=== PATIENT | female | born 1960 | race Caucasian/White ===

== ENCOUNTER → 2019-11-22 | Outpatient (CLI) | payer OTHER | LOC: MC.RAD 12:33 | DX: N63.21 Unspecified lump in the left breast, upper outer quadrant (principal); N63.32 Unspecified lump in axillary tail of the left breast; N63.10 Unspecified lump in the right breast, unspecified quadrant | CPT/HCPCS: G0279 ==

== ENCOUNTER → 2019-12-04 | Outpatient (CLI) | payer OTHER | LOC: MC.RAD 09:32 | DX: C50.912 Malignant neoplasm of unspecified site of left female breast (principal); R92.0 Mammographic microcalcification found on diagnostic imaging of breast | CPT/HCPCS: A4648 ==

== ENCOUNTER 2021-04-19 12:26 | Emergency (ER) | payer SELFPAY ==
[~2021-04-19] VITALS: Ht 177.8 cm; Wt 77.3 kg
[2021-04-19 13:04] LABS: BASO % 0.2 % (0.0-2.0); GRAN # 10.9 K/mm3 (1.4-6.5); GRAN % 88.8 % (42.2-75.2); HEMATOCRIT 45.6 % (37.0-47.0); HEMOGLOBIN 16.6 g/dl (12.5-16.0); LYMPH # 0.4 K/mm3 (1.2-3.4); LYMPH % 3.2 % (20.0-51.0); MEAN CELL VOLUME 106 fl (80.0-100.0); MEAN CORPUSCULAR HEMOGLOBIN 39 pg (27.0-31.0); MEAN CORPUSCULAR HGB CONC 36 g/dl (33.0-37.0); MEAN PLATELET VOLUME 9.7 fl (7.4-10.4); MONO # 0.9 K/mm3 (0.1-0.6); MONO % 7.4 % (1.7-9.3); PLATELET COUNT 171 K/mm3 (130-400); RED BLOOD COUNT 4.31 M/mm3 (4.10-5.30); REDCELL DISTRIBUTION WIDTH-CV 15.6 % (11.5-14.5)
[2021-04-19 13:21] LABS: ALANINE AMINOTRANSFERASE 30 U/L (0-55); ALBUMIN 5.1 gm/dL (3.5-5.0); ALKALINE PHOSPHATASE 118 U/L (40-150); ANION GAP 18 mmol/L (7-16); AST,SGOT 32 U/L (5-34); BILIRUBIN,TOTAL 2.1 mg/dL (0.2-1.2); BLOOD UREA NITROGEN 12 mg/dL (10-20); C-REACTIVE PROTEIN 0.17 mg/dL (0.00-0.50); CALCIUM 10.3 mg/dL (8.4-10.2); CARBON DIOXIDE 22 mmol/L (22-29); CHLORIDE 102 mmol/L (98-107); CREATININE, serum 0.78 mg/dL (0.57-1.11); GLUCOSE 155 mg/dL (70-99); LIPASE < 10 U/L (8-78); POTASSIUM 3.5 mmol/L (3.5-4.5); SODIUM 142 mmol/L (136-145); TOTAL PROTEIN 8.2 gm/dL (6.2-8.1)
[2021-04-19 17:13] LABS: COLLECTION METHOD CLEAN CATCH
[2021-04-19 17:18] LABS: MUCOUS Present /lpf; PH 8 (5-8); SQUAMOUS EPITHELIAL 0-2 /hpf; URINE APPEARANCE Clear; URINE BACTERIA None Seen /hpf; URINE BILIRUBIN Negative (NEGATIVE); URINE BLOOD Negative (NEGATIVE); URINE COLOR Yellow; URINE GLUCOSE 2+ (NEGATIVE); URINE KETONE 1+ (NEGATIVE); URINE LEUKOCYTE ESTERASE Negative (NEGATIVE); URINE NITRATE Negative (NEGATIVE); URINE PROTEIN(semi-quant) 3+ (NEGATIVE); URINE UROBILINOGEN Negative (NEGATIVE)
[2021-04-19 19:14] VITALS: BP 205/93; PULSE 67; TEMP 98.4
== END 2021-04-19 19:25 | disposition home or self-care (01) ==
LOC: COL.ER 12:26
PROVIDERS: Family Medicine
DX: R10.30 Lower abdominal pain, unspecified (principal); E86.0 Dehydration; Z87.891 Personal history of nicotine dependence
CPT/HCPCS: J2405; J7120; Q9967

== ENCOUNTER 2021-04-22 09:35 | Inpatient (IN) | payer OTHER ==
[~2021-04-22] VITALS: Ht 175.3 cm; Wt 82.2 kg
[2021-04-22] MEDS ORDERED: ZOFRAN 4MG T4 MG/TAB PO (10:16)
[2021-04-22] MEDS ORDERED: XELODA500 MG PO ×2 (10:17→20:23)
[2021-04-22] MEDS ORDERED: NORCO 325 MG-7.1 TAB PO (10:18)
[2021-04-22] MEDS ORDERED: MOBIC 7.5MG7.5 MG PO (10:20)
[2021-04-22] MEDS ORDERED: LYRICA 150MG C150 MG PO (10:20)
[2021-04-22 10:48] LABS: HEMATOCRIT 44.2 % (37.0-47.0); HEMOGLOBIN 16.4 g/dl (12.5-16.0); MEAN CELL VOLUME 106 fl (80.0-100.0); MEAN CORPUSCULAR HEMOGLOBIN 39 pg (27.0-31.0); MEAN CORPUSCULAR HGB CONC 37 g/dl (33.0-37.0); MEAN PLATELET VOLUME 9.5 fl (7.4-10.4); PLATELET COUNT 154 K/mm3 (130-400); RED BLOOD COUNT 4.17 M/mm3 (4.10-5.30); REDCELL DISTRIBUTION WIDTH-CV 15.2 % (11.5-14.5)
[2021-04-22 11:00] LABS: ALANINE AMINOTRANSFERASE 30 U/L (0-55); ALKALINE PHOSPHATASE 112 U/L (40-150); ANION GAP 12 mmol/L (7-16); AST,SGOT 24 U/L (5-34); BILIRUBIN,TOTAL 1.7 mg/dL (0.2-1.2); BLOOD UREA NITROGEN 16 mg/dL (10-20); CALCIUM 9.1 mg/dL (8.4-10.2); CARBON DIOXIDE 24 mmol/L (22-29); CHLORIDE 102 mmol/L (98-107); CREATININE, serum 0.77 mg/dL (0.57-1.11); GLUCOSE 125 mg/dL (70-99); LIPASE < 10 U/L (8-78); POTASSIUM 3.1 mmol/L (3.5-4.5); SODIUM 138 mmol/L (136-145); TOTAL PROTEIN 6.8 gm/dL (6.2-8.1)
[2021-04-22 11:12] LABS: BAND 2 % (0-10); LYMPHOCYTE 7 % (20.0-51.0)
[2021-04-22 11:13] LABS: ANISOCYTOSIS 1+; PLATELET ESTIMATE NORMAL (NORMAL)
[2021-04-22 11:14] LABS: NEUTROPHILS 81 % (42.0-75.2)
[2021-04-22 12:08] LABS: COLLECTION METHOD CLEAN CATCH
[2021-04-22 12:16] LABS: MUCOUS Present /lpf; PH 5 (5-8); URINE APPEARANCE Hazy (CLEAR/HAZY); URINE BACTERIA None Seen /hpf (NONE SEEN); URINE BILIRUBIN Negative (NEGATIVE); URINE BLOOD 1+ (NEGATIVE); URINE COLOR Yellow (YELLOW); URINE GLUCOSE Negative (NEGATIVE); URINE KETONE Negative (NEGATIVE); URINE LEUKOCYTE ESTERASE Negative (NEGATIVE); URINE NITRATE Negative (NEGATIVE); URINE PROTEIN(semi-quant) 2+ (NEGATIVE); URINE UROBILINOGEN >=4.0 mg/dL (NEGATIVE)
[2021-04-22] MEDS ORDERED: OMEGA-3 1000 MG1 CAP PO (20:23)
[2021-04-22] MEDS ORDERED: B-12 500 MCG PO (20:24)
[2021-04-22] MEDS ORDERED: VITAMIN D31000 I1 PO (20:25)
[2021-04-22] MEDS ORDERED: GINGER500 MG PO (20:25)
[2021-04-22] MEDS ORDERED: PEPCID 20MG TAB20 MG PO (20:26)
[2021-04-22] MEDS ORDERED: ZYRTEC 10MG10 MG PO (20:26)
--- NOTE | 2021-04-22 21:03 | NUR ---
Patient arrived to medical unit from ER at approximately 2030. Alert and oriented x 4, and able to make needs known. Denies pain and this time, except for nausea. Given PRN Zofran as ordered. Denies SOB and dyspnea. LS CTA. HRR. Telemetry in place: normal sinus. Capillary refill less than 3 seconds. Non-tenting skin turgor. BSAx4. No edema. Patient has INT to right wrist. Started IV fluids per orders. Voices no questions, needs, or concerns at this itme. In bed with call light within reach.
[2021-04-22 22:19] VITALS: BP 150/69; PULSE 80; TEMP 98.5
[2021-04-23 01:09] VITALS: BP 127/54; PULSE 64; TEMP 97.4
--- NOTE | 2021-04-23 05:01 | NUR ---
Patient has received PRN Zofran as requested for nausea. No emesis this shift. Continues on clear liquid diet, and IV fluids continue per orders. Voices no questions, needs, or concerns at this time. In bed with call light within reach.
[2021-04-23 06:45] LABS: BASO % 0.3 % (0.0-2.0); EOS # 0.1 K/mm3 (0.0-0.7); EOS % 1.5 % (0-4.0); GRAN # 4.6 K/mm3 (1.4-6.5); GRAN % 73.6 % (42.2-75.2); LYMPH # 0.6 K/mm3 (1.2-3.4); LYMPH % 10.2 % (20.0-51.0); MEAN CELL VOLUME 109 fl (80.0-100.0); MEAN CORPUSCULAR HGB CONC 36 g/dl (33.0-37.0); MEAN PLATELET VOLUME 9.7 fl (7.4-10.4); MONO # 0.9 K/mm3 (0.1-0.6); MONO % 13.9 % (1.7-9.3); PLATELET COUNT 118 K/mm3 (130-400); RED BLOOD COUNT 3.16 M/mm3 (4.10-5.30); REDCELL DISTRIBUTION WIDTH-CV 15.1 % (11.5-14.5)
[2021-04-23 06:55] LABS: HEMATOCRIT 34.3 % (37.0-47.0); HEMOGLOBIN 12.4 g/dl (12.5-16.0); MEAN CORPUSCULAR HEMOGLOBIN 39 pg (27.0-31.0)
[2021-04-23 07:14] LABS: CALCIUM 7.9 mg/dL (8.4-10.2); CREATININE, serum 0.61 mg/dL (0.57-1.11); POTASSIUM 3.1 mmol/L (3.5-4.5)
[2021-04-23 08:12] VITALS: BP 137/63; PULSE 71; TEMP 97.7
--- NOTE | 2021-04-23 11:00 | NUR ---
ASSESSMENT COMPLETE. PT COOPERATIVE WITH CARES. PT RESTING IN BED WITH HER BY HER SIDE. PT STATES, OTHER THEN SOME HEARTBURN, SHE HAS NO PAIN, PALPITATIONS OR DIZZINESS. PT REQUESTED SOME ICE FOR DRY MOUTH. A SMALL AMOUNT OF ICE GRANTED TO PT. PT STATES SHE HAS NO OTHER NEEDS AT THIS TIME. CALL LIGHT WITHIN REACH.
--- NOTE | 2021-04-23 11:47 | NUR ---
First visit from the manager social work. No needs right now.
[2021-04-23 11:55] VITALS: BP 145/64; PULSE 71; TEMP 98
--- NOTE | 2021-04-23 16:29 | NUR ---
workers compensation analyst met with patient to discuss discharge plan. Patient reports that she lives at home alone in [place], but that her boyfriend Jacoby ([phone]) often stays with her. Patient reports that she is fully independent with her activities of daily living and that she does not utilize any DME to assist with mobility and has no oxygen needs. PCP is Dr. Weeks in [place] and she utilizes [facility] in for perscription needs with no cost difficulty. Patient reports that she does not have a DPOA-HC established and wishes to. Form and education provided to the patient. Patient fills form out listing Jacoby as her agent. She has two daughters that she states " i don't want to put that on them". This SW and SILVESTRE Nelson witnessed patient sign form. Original and copy provided to the patient and copy placed in the patients chart. Discharge plan: Home
[2021-04-23 17:05] VITALS: BP 178/68; PULSE 69; TEMP 97.4
--- NOTE | 2021-04-23 17:50 | NUR ---
PT RESTING IN BED WATCHING TV. PT HAD AN UNEVENTFUL DAY. PT DENIES PAIN OTHER THEN ESOPHAGEAL BURN, PALPITATIONS OR DIZZINESS. PT TOLERATING CLEAR LIQUIDS. PT STATES SHE HAS NO OTHER NEEDS AT THIS TIME. CALL LIGHT WITHIN REACH.
[2021-04-23 19:51] VITALS: BP 149/70; PULSE 66; TEMP 97.9
--- NOTE | 2021-04-23 20:30 | NUR ---
Initial shift assessment done- denies nausea at this time, states having some esophageal burning-- will give the protonix as ordered at this time, drinking some broth at this time- states its her second cup for supper-denies nausea, tele on, IV fluids of 1/2 NS at 75cc/hr. Will be NPO after MN for EGD around noon tomorrow.
[2021-04-23 23:46] VITALS: BP 181/63; PULSE 69; TEMP 98
[2021-04-24] VITALS (14 sets, daily range): BP systolic 152–184; BP diastolic 65–84; PULSE 65–89; TEMP 97.9–98.8
--- NOTE | 2021-04-24 06:05 | NUR ---
Quiet night- no request for nausea meds- resting on and off, up to bathroom to void a few times tonight. NPO for EGD. Continues with IV fluids at 75cc/hr
[2021-04-24 07:34] LABS: BASO % 0.4 % (0.0-2.0); EOS # 0.2 K/mm3 (0.0-0.7); EOS % 3.3 % (0-4.0); GRAN # 3.6 K/mm3 (1.4-6.5); GRAN % 70.6 % (42.2-75.2); HEMOGLOBIN 12.3 g/dl (12.5-16.0); LYMPH # 0.6 K/mm3 (1.2-3.4); LYMPH % 11.2 % (20.0-51.0); MEAN CELL VOLUME 110 fl (80.0-100.0); MEAN CORPUSCULAR HEMOGLOBIN 39 pg (27.0-31.0); MEAN CORPUSCULAR HGB CONC 35 g/dl (33.0-37.0); MEAN PLATELET VOLUME 9.8 fl (7.4-10.4); MONO # 0.7 K/mm3 (0.1-0.6); MONO % 14.1 % (1.7-9.3); PLATELET COUNT 139 K/mm3 (130-400); RED BLOOD COUNT 3.16 M/mm3 (4.10-5.30); REDCELL DISTRIBUTION WIDTH-CV 14.9 % (11.5-14.5)
[2021-04-24 07:42] LABS: HEMATOCRIT 34.8 % (37.0-47.0)
[2021-04-24 08:11] LABS: ALBUMIN 2.9 gm/dL (3.5-5.0); BILIRUBIN,TOTAL 1.4 mg/dL (0.2-1.2); CALCIUM 8.4 mg/dL (8.4-10.2); CREATININE, serum 0.6 mg/dL (0.57-1.11); TOTAL PROTEIN 4.8 gm/dL (6.2-8.1)
--- NOTE | 2021-04-24 09:50 | NUR ---
PT ESCORTED TO ENDOSCOPY BY GUERA LIU VIA BED.
--- NOTE | 2021-04-24 10:30 | NUR ---
PT ARRIVED FROM EGD, ALEXA FROM ENDO BROUGHT HER TO ROOM, ATTACHED TO POST OP VITALS, PT AOX4, STILL REPORTS BURNING IN ESOPHAGUS
--- NOTE | 2021-04-24 15:22 | NUR ---
ASSESSMENT COMPLETE. PT COOPERATIVE WITH CARES. PT RESTING IN BED WAITING FOR HER ENDOSCOPY PROCEDURE. PT DENIES PAIN, PALPITATIONS, OR DIZZINESS. PT STATES SHE HAS NO OTHER NEEDS AT THIS TIME. CALL LIGHT IS WITHIN REACH.
--- NOTE | 2021-04-24 18:32 | NUR ---
PT RESTING IN BED WITH HER BY HER SIDE. PT STATES SHE IS DOING WELL AFTER HER ENDOSCOPY PROCEDURE, OTHER THEN SOME THROAT DISCOMFORT WHEN SHE SWALLOWS. PT DENIES PALPITATION, SOB OR DIZZINESS. PT IS NOW ON A BLAND/GERD DIET. PT STATES SHE HAS NO OTHER NEEDS AT THIS TIME. CALL LIGHT WITHIN REACH.
--- NOTE | 2021-04-24 22:05 | NUR ---
Patient assessed around 2009. Reports discomfort to throat, otherwise denies pain. Denies nausea and upset stomach at this time. Potassium replaced, order placed to recheck at 2300 per protocol. Peripheral INTs to right forearm x 2. Patient voices no questions, needs, or concerns at this time. In bed with call light within reach.
[2021-04-25 04:17] VITALS: BP 175/77; PULSE 70; TEMP 97.9
--- NOTE | 2021-04-25 05:47 | NUR ---
Patient has denied pain and discomfort this shift, except for soreness to throat. Denies having SOB and dyspnea. Potassium replaced per protocol. Voices no questions, needs, or concerns at this time. In bed with call light within reach.
[2021-04-25 08:16] VITALS: BP 131/54; PULSE 72; TEMP 98.2
[2021-04-25] MEDS ORDERED: PROTONIX 40MG T40 MG PO (10:09)
--- NOTE | 2021-04-25 11:00 | NUR ---
PT ALERT AND ORIENTED. PT HAS CLEAR LUNGS TO AUSCULTATION. PT HAS S1,S2 SOUNDS AUSCULTATED. PT HAS 1+ PULSE IN LEFT DORSALIS PEDIS, 2+ IN RIGHT DORSALIS PEDIS. POSTERIOR TIBIAL, AND RADIAL PULSES 2+ BILATERALLY. CAP REFILL <3S, NORMAL COLORING. PT HAS SCAB OVER LEFT GREAT TOE. PT CALL LIGHT WITHIN REACH. PT ABLE TO AMBULATE INDEPENDENTLY IN ROOM.
--- NOTE | 2021-04-25 11:22 | NUR ---
DAUGHTER, SUNDAY CALLED FOR UPDATE. VERBAL CONSENT RECEIVED FROM PT TO GIVE UPDATE. PRIVACY PASSWORD GIVEN FOR FUTURE UPDATES. UPDATED TO BEST OF ABILITY. TOLD BY DAUGHTER PT BEING TREATED FOR SHINGLES. WAS AT [employer] [facility] ON TUESDAY FOR BIOPSY AND 2 STITCHES REMOVED.
[2021-04-25 11:37] VITALS: BP 148/68; PULSE 79; TEMP 98.4
--- NOTE | 2021-04-25 12:20 | NUR ---
PT DISCHARGING. EDUCATION, HEALTH SUMMARY GIVEN TO BEST OF ABILITY. PT VERBALIZED UNDERSTANDING. PT INTS DISCONTINUED.
== END 2021-04-25 13:39 | disposition home or self-care (01) | DRG 392 ==
LOC: COL.ER 09:35 → MEDICAL 17:11
PROVIDERS: Internal Medicine Gastroenterology; Physician Assistant; ADMIT Student in an Organized Health Care Education/Training Program
PROC: 0DB38ZX Excision of Lower Esophagus, Via Natural or Artificial Opening Endoscopic, Diagnostic (ICD-10-PCS; principal; 2021-04-24 12:00)
DX: K21.00 Gastro-esophageal reflux disease with esophagitis, without bleeding (principal); K26.7 Chronic duodenal ulcer without hemorrhage or perforation; C50.919 Malignant neoplasm of unspecified site of unspecified female breast; E86.0 Dehydration; E87.6 Hypokalemia; F17.210 Nicotine dependence, cigarettes, uncomplicated; C76.8 Malignant neoplasm of other specified ill-defined sites; K57.30 Diverticulosis of large intestine without perforation or abscess without bleeding; Z20.822 Contact with and (suspected) exposure to COVID-19
CPT/HCPCS: 99222-AI; 99223-AI; 99232-AI; 99239; C9113; G0378; J1650; J2270; J2405; J2550; J2704; J2765; J3480; J7030

== ENCOUNTER 2021-08-03 21:04 | Observation (INO) | payer OTHER ==
[~2021-08-03] VITALS: Ht 177.8 cm; Wt 84.7 kg
[~2021-08-03 21:04] MED LIST: B-12 500 MCG PO; GINGER PO; LYRICA 150MG C150 MG PO; MOBIC 7.5MG7.5 MG PO; NORCO 325 MG-7.1 TAB PO; OMEGA-3 1000 MG1 CAP PO; PEPCID 20MG TAB20 MG PO; PROTONIX 40MG T40 MG PO; TURMERIC PO; VITAMIN D31000 I1 PO; XELODA500 MG PO; ZOFRAN 4MG T4 MG/TAB PO; ZYRTEC 10MG10 MG PO
[2021-08-03 21:33] LABS: HEMATOCRIT 51.1 % (37.0-47.0); HEMOGLOBIN 17.9 g/dl (12.5-16.0); MEAN CELL VOLUME 91 fl (80.0-100.0); MEAN CORPUSCULAR HEMOGLOBIN 32 pg (27-31); MEAN CORPUSCULAR HGB CONC 35 g/dl (33.0-37.0); PLATELET COUNT 219 K/mm3 (130-400); RED BLOOD COUNT 5.63 M/mm3 (4.10-5.30); REDCELL DISTRIBUTION WIDTH-CV 12.7 % (11.5-14.5)
[2021-08-03 21:52] LABS: BILIRUBIN,TOTAL 0.8 mg/dL (0.2-1.2); C-REACTIVE PROTEIN 0.2 mg/dL (0.00-0.50); CALCIUM 10.5 mg/dL (8.4-10.2); CREATININE, serum 0.78 mg/dL (0.57-1.11); POTASSIUM 4.1 mmol/L (3.5-4.5); TOTAL PROTEIN 8.3 gm/dL (6.2-8.1)
[2021-08-03 22:18] LABS: LYMPHOCYTE 3 % (20.0-51.0); NEUTROPHILS 93 % (42.0-75.2); PLATELET ESTIMATE NORMAL (NORMAL)
[2021-08-04] VITALS (12 sets, daily range): BP systolic 147–172; BP diastolic 65–111; PULSE 71–125; TEMP 98–99.3
--- NOTE | 2021-08-04 06:16 | NUR ---
MESSAGE LEFT FOR DR AG, CONSULTING.
--- NOTE | 2021-08-04 06:17 | NUR ---
CONT TO HAVE N/V OVERNIGHT. PHENERGAN GIVEN. LARGE EMESIS SEVERALX. ENC TO SLOW DOWN ON ANY INTAKE, HAD TOOK ICE CHIPS ONLY OVERNIGHT.
[2021-08-04 06:40] LABS: BASO % 0.2 % (0.0-2.0); GRAN # 5.1 K/mm3 (1.4-6.5); GRAN % 83.3 % (42.2-75.2); HEMATOCRIT 37.9 % (37.0-47.0); LYMPH # 0.5 K/mm3 (1.2-3.4); LYMPH % 7.7 % (20.0-51.0); MEAN CELL VOLUME 92 fl (80.0-100.0); MEAN CORPUSCULAR HEMOGLOBIN 32 pg (27-31); MEAN CORPUSCULAR HGB CONC 34 g/dl (33.0-37.0); MEAN PLATELET VOLUME 9.2 fl (7.4-10.4); MONO # 0.5 K/mm3 (0.1-0.6); MONO % 8.6 % (1.7-9.3); PLATELET COUNT 163 K/mm3 (130-400); RED BLOOD COUNT 4.12 M/mm3 (4.10-5.30); REDCELL DISTRIBUTION WIDTH-CV 12.9 % (11.5-14.5)
[2021-08-04 08:00] LABS: BASO % 0.2 % (0.0-2.0); GRAN # 7.3 K/mm3 (1.4-6.5); GRAN % 84.2 % (42.2-75.2); HEMATOCRIT 46.6 % (37.0-47.0); LYMPH # 0.5 K/mm3 (1.2-3.4); LYMPH % 5.8 % (20.0-51.0); MEAN CELL VOLUME 92 fl (80.0-100.0); MEAN CORPUSCULAR HEMOGLOBIN 32 pg (27-31); MEAN CORPUSCULAR HGB CONC 35 g/dl (33.0-37.0); MEAN PLATELET VOLUME 9.2 fl (7.4-10.4); MONO # 0.8 K/mm3 (0.1-0.6); MONO % 9.5 % (1.7-9.3); PLATELET COUNT 218 K/mm3 (130-400); RED BLOOD COUNT 5.09 M/mm3 (4.10-5.30); REDCELL DISTRIBUTION WIDTH-CV 12.9 % (11.5-14.5)
[2021-08-04 08:01] LABS: CALCIUM 9.6 mg/dL (8.4-10.2); CREATININE, serum 0.69 mg/dL (0.57-1.11); POTASSIUM 3.1 mmol/L (3.5-4.5)
[2021-08-04 08:02] LABS: HEMOGLOBIN 16.3 g/dl (12.5-16.0)
--- NOTE | 2021-08-04 10:42 | NUR ---
Initial visit; Patient receptive to prayer and God's blessings. Accounts Receivable Bookkeeper yesy continue to look in on Patience.
--- NOTE | 2021-08-04 11:33 | NUR ---
Patient began vomiting again this morning at approx. 1015. PRN phenergran was given. Patient taken down for EGD at approx. 1100; Consent signed, straight tubing hooked up w/ NS running at 30mL/hr.
--- NOTE | 2021-08-04 13:25 | NUR ---
Social Work student met with patient to discuss discharge planning. Patient's friend, Jacoby Kay was at bedside during intake. Patient lives alone in [place]. Patient's emergency contacts are her daughter, Vivienne(ph#[phone]) and friend, Jacoby Kay(ph#[phone]). Patient sees Dr. Zoraida Weeks for primary care, and receives her medications through the [facility] in [place]. Patient reports she is independent with her ADL's, and she does not utilize any durable medical equiptment or oxygen while at home. Patient does have a DPOA-HC on file. The DPOA-HC lists her friend, Jacoby Kay, as the primary agent. Patient does not need any further needs at this time from . Discharge plan: Home
--- NOTE | 2021-08-04 13:26 | NUR ---
Patient has done well since being back on the floor. Patient has remained A&Ox4, but is very tired. Patient has not vomited since being back on the floor. States pain is under control at the moment and went back to sleep. IV fluids continue to run at 125mL/hr. Patient's boyfriend is at the bedside.
[2021-08-04] MEDS ORDERED: ASPIRIN E.C. 8181 MG PO (14:05)
[2021-08-04] MEDS ORDERED: PREBIOTIC PO (14:09)
--- NOTE | 2021-08-04 16:43 | NUR ---
Patient has been resting all afternoon. Nausea and vomiting are under control, phenergran works best for the patient.
--- NOTE | 2021-08-04 21:46 | NUR ---
ALERT AND OX4. CONT TO HAVE NAUSEA AND VOMITING TODAY. REPLACING K CURRENTLY. PHENERGAN GIVEN AND HELPS W HER N/V. S/O AT BEDSIDE. POC DISCUSSED. PM MEDS. CALL LIGHT WI REACH.
[2021-08-05 00:25] VITALS: BP 164/75; PULSE 68; TEMP 98
[2021-08-05 04:13] VITALS: BP 176/72; PULSE 68; TEMP 98
--- NOTE | 2021-08-05 06:12 | NUR ---
RESTED THROUGH THE NIGHT WIHTOUT INCIDENT. N/V SEEMS TO IMPROVED PT DID NOT VOMIT AND SLEPT OVERNIGHT.
[2021-08-05 06:37] LABS: CALCIUM 8.8 mg/dL (8.4-10.2); CREATININE, serum 0.67 mg/dL (0.57-1.11); MAGNESIUM 1.8 mg/dL (1.6-2.6); POTASSIUM 3.4 mmol/L (3.5-4.5)
[2021-08-05 07:31] VITALS: BP 158/74; PULSE 68; TEMP 98.2
--- NOTE | 2021-08-05 08:00 | NUR ---
PATIENT IS A&O. VSS. PATIENT REPORTS NAUSEA IS BETTER THIS AM. TOLERATING CLEARS. NURSING AND PATIENT DISCUSSED POSSIBLY ADVANCING HER DIET TODAY AND SEE HOW SHE TOLERATES IT. PATIENT WANTING TO DISCHARGE HOME TODAY. IV FLUIDS CURRENTLY INFUSING INTO RIGHT FORARM IV VIA PUMP. AM MEDS GIVEN. HEAD TO TOE ASSESSMENT WNL. SCD'S CURRENTLY OFF. INDEPENDENT IN ROOM. PATIENT ALSO REPORTS SHE IS PASSING GAS AND HAD A BM THIS AM. NO OTHER NEEDS AT THIS TIME. CALL LIGHT IN REACH.
[2021-08-05] MEDS ORDERED: PROTONIX 40MG T40 MG PO (09:18)
[2021-08-05] MEDS ORDERED: PHENERGAN 25 TA25 MG PO (09:19)
[2021-08-05] MEDS ORDERED: ZOFRAN ODT4 MG PO (09:19)
[2021-08-05] MEDS ORDERED: NORVASC 5MG5 MG/TAB PO (09:21)
--- NOTE | 2021-08-05 10:15 | NUR ---
PATIENT DISCHARGING HOME. GAVE DISCHARGE INSTRUCTIONS, E-SCRIPTS SENT, AND DISCUSSED F/U APT. ANSWERED QUESTIONS/CONCERNS. DC'D RIGHT FORARM IV SITE & COVERED WITH BANDAID. PATIENT IS DRESSED, PACKING PERSONAL BELONGINGS AND CALLING HER RIDE. PATIENT WILL PUT MAILROOM COURIER LIGHT WHEN HER RIDE IS HERE.
[2021-08-05 11:01] VITALS: BP 155/88; PULSE 62; TEMP 97.8
--- NOTE | 2021-08-05 11:30 | NUR ---
PATIENT'S IS HERE. PATIENT DISCHARGING TO HOME VIA WC TO PERSONAL VEHICLE. PATIENT IS DRESSED, PACKED AND DISCHARGED.
== END 2021-08-05 11:30 | disposition home or self-care (01) ==
LOC: COL.ER 21:04 → MEDICAL 22:48
PROVIDERS: Emergency Medicine; Internal Medicine; Student in an Organized Health Care Education/Training Program; ADMIT Internal Medicine
DX: K21.00 Gastro-esophageal reflux disease with esophagitis, without bleeding (principal); K29.30 Chronic superficial gastritis without bleeding; I16.0 Hypertensive urgency; K44.9 Diaphragmatic hernia without obstruction or gangrene; K27.9 Peptic ulcer, site unspecified, unspecified as acute or chronic, without hemorrhage or perforation; R19.7 Diarrhea, unspecified; K31.89 Other diseases of stomach and duodenum; C50.919 Malignant neoplasm of unspecified site of unspecified female breast; E87.6 Hypokalemia; F17.210 Nicotine dependence, cigarettes, uncomplicated; Z92.3 Personal history of irradiation; Z85.3 Personal history of malignant neoplasm of breast; Z79.899 Other long term (current) drug therapy
CPT/HCPCS: C9113; G0378; J0360; J2060; J2405; J2550; J2704; J3480; J7030

== ENCOUNTER 2021-09-22 21:04 | Emergency (ER) | payer OTHER ==
[~2021-09-22] VITALS: Ht 177.8 cm; Wt 77.3 kg
[~2021-09-22 21:04] MED LIST changes: +ASPIRIN E.C. 8181 MG PO; +NORVASC 5MG5 MG/TAB PO; +PHENERGAN 25 TA25 MG PO; +PREBIOTIC PO; +ZOFRAN ODT4 MG PO
[2021-09-22 21:12] VITALS: TEMP 97.4
[2021-09-22 21:46] LABS: BASO % 0.4 % (0.0-2.0); EOS % 0.4 % (0.0-4.0); GRAN # 7.2 K/mm3 (1.4-6.5); GRAN % 84.9 % (42.2-75.2); HEMATOCRIT 44.9 % (37.0-47.0); HEMOGLOBIN 15.8 g/dl (12.5-16.0); LYMPH # 0.5 K/mm3 (1.2-3.4); LYMPH % 6.4 % (20.0-51.0); MEAN CELL VOLUME 86 fl (80.0-100.0); MEAN CORPUSCULAR HEMOGLOBIN 30 pg (27-31); MEAN CORPUSCULAR HGB CONC 35 g/dl (33.0-37.0); MEAN PLATELET VOLUME 10.1 fl (7.4-10.4); MONO # 0.6 K/mm3 (0.1-0.6); MONO % 7.5 % (1.7-9.3); PLATELET COUNT 205 K/mm3 (130-400); REDCELL DISTRIBUTION WIDTH-CV 13.4 % (11.5-14.5)
[2021-09-22 22:01] LABS: ALBUMIN 4.7 gm/dL (3.5-5.0); BILIRUBIN,TOTAL 0.8 mg/dL (0.2-1.2); CREATININE, serum 0.79 mg/dL (0.57-1.11); POTASSIUM 4.1 mmol/L (3.5-4.5); TOTAL PROTEIN 7.7 gm/dL (6.2-8.1)
[2021-09-22 23:38] LABS: TRICYCLIC ANTIDEPRESS URINE NEGATIVE
[2021-09-23] MEDS ORDERED: PHENERGAN 25 TA25 MG PO (00:29)
[2021-09-23 01:04] VITALS: BP 161/91; PULSE 94
== END 2021-09-23 01:04 | disposition home or self-care (01) ==
LOC: COL.ER 21:04
PROVIDERS: Personal Emergency Response Attendant
DX: R10.84 Generalized abdominal pain (principal); R11.10 Vomiting, unspecified
CPT/HCPCS: J1790; J2270; J7030; Q9967